=== PATIENT | female | born 1960 | race Caucasian/White ===

== ENCOUNTER 2024-01-27 10:41 | Outpatient (AMB) | payer OTHER, SELFPAY ==
--- NOTE | 2024-01-27 10:45 | A.OFFPC_ITS ---
Vital Signs 01/27/24 10:47 Height 5 ft 7 in Weight 171 lb 2 oz BMI 26.8 BP 124/66 Blood Pressure Location Rt brachial Position Sitting Pulse 66 Pulse Source Pulse Oximeter Pulse Oximetry (%) 97 Oxygen Delivery Method Room Air Intake Visit Reasons: BREND[facility] From [facility] Allergies No Known Allergies Allergy (Verified 01/27/24 10:49) Tobacco use date assessed: 01/27/24 Fall risk assessment: No Falls in past year Last assessed Fall Risk: 01/27/24 Dental Screening Dental Screen Date: 01/27/24 Did you have a dental visit in the last 12 months?: Yes Did you have a dental problem in the last 6 months where you did not have access to dental care?: No Was dental information given to patient?: Patient has dentist HPI HPI Comments 2 History of Present Illness Details The patient is a 63-year-old female with a past medical history of hyperlipidemia, osteopenia, osteoarthritis presenting for follow-up. She was last seen 09/04/2023 for annual exam OA: Follows with [facility] treatment [facility], Dr. Hernandez. She was having bilateral knee issues last year and low back pain. She did start treatments, mud [place]. This helped alleviate a lot of the pain. She is repeating this regimen in february Right TMJ has improved Chiro believes it is more muscular than joint. 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 Shirley office ROS CONSTITUTIONAL: Denies weight loss, fever and chills. HEENT: Denies changes in vision and hearing. RESPIRATORY: Denies SOB and cough. CV: Denies palpitations and CP GI: Denies abdominal pain, nausea, vomiting and diarrhea. : Denies dysuria and urinary frequency. MSK: Denies new myalgia and joint pain. SKIN: Denies rash and pruritus. NEUROLOGICAL: Denies headache PSYCHIATRIC: Denies recent changes in mood. PHYSICAL EXAM: GENERAL: Alert and oriented x 3. NAD EYES: EOMI. Anicteric. HENT: Moist mucous membranes. No scleral icterus. No cervical lymphadenopathy. LUNGS: Clear to auscultation bilaterally. CARDIOVASCULAR: Regular rate and rhythm. No murmur. No JVD. ABDOMEN: Soft, non-tender +bs EXTREMITIES: No edema. Non-tender. SKIN: No rashes or lesions. Warm. NEUROLOGIC: No focal neurological deficits. CN II-XII grossly intact PSYCHIATRIC: Cooperative. Appropriate mood and affect [facility] Surgical History No pertinent past surgical history Family History Father Cancer Alcohol abuse Substance abuse Social History Household Members: Spouse Housing: House Alcohol intake: never Patient Tobacco Use Status: Former Tobacco user Use of substances other than those prescribed or required for medical reasons: No Current occupational status: retired Cognitive needs: No Hearing needs: No Vision needs: Yes Questionnaire PHQ-9 Over the last 2 weeks, how often have you been bothered by any of the following problems? 1. Little interest or pleasure in doing things: not at all 2. Feeling down, depressed, or hopeless: not at all 3. Trouble falling or staying asleep, or sleeping too much: not at all 4. Feeling tired or having little energy: not at all 5. Poor appetite or overeating: not at all 6. Feeling bad about yourself - or that you are a failure or have let yourself or your family down: not at all 7. Trouble concentrating on things, such as reading the newspaper or watching television: not at all 8. Moving or speaking so slowly that other people could have noticed. Or the opposite - being so fidgety or restless that you have been moving around a lot more than usual: not at all 9. Thoughts that you would be better off or of hurting yourself in some way: not at all Total score: 0 Depression Screening Interpretation: Negative (neg) Depression Screening Done: Yes 36025 - PHQ-9 Billing: Yes Source: Developed by Drs. Bryan Valenzuela, Frances Huitron, Baltazar Monaco and colleagues, with an educational moshe from [employer] Thrive Questionnaire Date Thrive assessed: 01/27/24 I am a: Patient What is your living situation today?: I have a steady place to live Within the past 12 months, did the food you bought not last and you didn't have the money to get more?: Never true Within the past 12 months, did you worry whether your food would run out before you got money to buy more?: Never true Do you have trouble paying for medicines?: No Do you have trouble getting transportation to medical appointments?: No Do you have trouble paying your heating and electricity bill?: No Do you have trouble taking care of your child, family member or friend?: No Do you have trouble with day-to-day activities such as bathing, preparing meals, shopping, managing finances, etc.?: No Are you currently unemployed and looking for a job?: No Are you interested in more education?: No THRIVE Score: 0 AUDIT C Alcohol Use Questionnaire (AUDIT-C) 1. How often do you have a drink containing alcohol?: Never 3. How often do you have six or more drinks on one occasion?: Never Total Score: 0 JAS-7 AMB Questionnaire JAS-7 Date JAS - 7 assessed: 01/27/24 Feeling nervous, anxious, or on edge: 0 = Not at all Not being able to stop or control worryin = Not at all Worrying too much about different things: 0 = Not at all Trouble relaxin = Not at all Being so restless that it is hard to sit still: 0 = Not at all Becoming easily annoyed or irritable: 0 = Not at all Feeling afraid as if something awful might happen: 0 = Not at all Total JAS-7 score (0-4 normal; 5-9 mild; 10-14 moderate; 15-21 severe): 0 Source: Developed by Drs. Bryan Valenzuela, Frances Huitron, Baltazar Monaco and colleagues, with an educational moshe from [employer] JAS-7 Assessment Billing JAS-7 Assessment Tool: JAS-7 Assessment 80376 Physical exam (Primary Care) Vital Signs: Last Vital Signs Pulse 66 01/27/24 10:47 BP 124/66 01/27/24 10:47 Pulse Ox 97 01/27/24 10:47 Oxygen Delivery Method Room Air 01/27/24 10:47 BMI result Body Mass Index 26.8 Tobacco/Smoking Status: Tobacco use Status Tobacco use date assessed 01/27/24 01/27/24 10:57 Patient Tobacco Use Status Former Tobacco user 01/27/24 10:57 PHQ-9: PHQ-9 Score PHQ-9: Total score 0 01/29/24 10:50 Depression Screening Interpretation: Negative (neg) Thrive Assessment: Date of Thrive Assessment Date Thrive assessed 01/27/24 01/27/24 10:57 Assessment and Plan Assessment & Plan (1) Osteoarthritis: Code(s): M19.90 - Unspecified osteoarthritis, unspecified site (2) Knee pain: Code(s): M25.569 - Pain in unspecified knee Qualifiers: Chronicity: chronic Laterality: bilateral Qualified Code(s): M25.561 - Pain in right knee; M25.562 - Pain in left knee; G89.29 - Other chronic pain Plan: continue f/up with arthritis treatment center [place]coming [place] treatments [place] Labs ordered Orders: Orders Complete Blood Count Auto Diff 01/27/24 M19.90 - Unspecified osteoarthritis, unspecified site, M25.569 - Pain in unspecified knee, S03.00XA - Dislocation of jaw, unspecified side, initial encounter, Z13.0 - Encounter for screening for diseases of the blood and blood-forming organs and certain disorders involving the immune mechanism, Z13.228 - Encounter for screening for other metabolic disorders Vitamin D 1,25 dihydroxy 01/27/24 M19.90 - Unspecified osteoarthritis, unspecified site, M25.569 - Pain in unspecified knee, S03.00XA - Dislocation of jaw, unspecified side, initial encounter, Z13.0 - Encounter for screening for diseases of the blood and blood-forming organs and certain disorders involving the immune mechanism, Z13.228 - Encounter for screening for other metabolic disorders IRON PROFILE 01/27/24 M19.90 - Unspecified osteoarthritis, unspecified site, M25.569 - Pain in unspecified knee, S03.00XA - Dislocation of jaw, unspecified side, initial encounter, Z13.0 - Encounter for screening for diseases of the blood and blood-forming organs and certain disorders involving the immune mechanism, Z13.228 - Encounter for screening for other metabolic disorders Comprehensive Met. Panel 01/27/24 M19.90 - Unspecified osteoarthritis, unspecified site, M25.569 - Pain in unspecified knee, S03.00XA - Dislocation of jaw, unspecified side, initial encounter, Z13.0 - Encounter for screening for diseases of the blood and blood-forming organs and certain disorders involving the immune mechanism, Z13.228 - Encounter for screening for other metabolic disorders ABO RH Type 01/27/24 M19.90 - Unspecified osteoarthritis, unspecified site, M25.569 - Pain in unspecified knee, S03.00XA - Dislocation of jaw, unspecified side, initial encounter, Z13.0 - Encounter for screening for diseases of the blood and blood-forming organs and certain disorders involving the immune mechan ism, Z13.228 - Encounter for screening for other metabolic disorders AMB Urinalysis Auto Microscop. 01/27/24 M19.90 - Unspecified osteoarthritis, unspecified site, Z13.0 - Encounter for screening for diseases of the blood and blood-forming organs and certain disorders involving the immune mechanism, Z13.228 - Encounter for screening for other metabolic disorders Referrals MICROELECTRONICS TECHNICIAN Referral Z12.4 - Encounter for screening for malignant neoplasm of cervix Coding Level of Care Code Est Pt Level 4 (53470) Diagnoses Osteoarthritis M19.90 Chronic pain of both knees M25.561; M25.562; G89.29 Chronicity: chronic Laterality: bilateral Additional Codes JAS-7 Assessment Billing - JAS-7 Assessment Tool: JAS-7 Assessment 60668 ([id number]) Time Spent (min) 38
[2024-01-27 10:47] VITALS: BP 124/66; PULSE 66; O2SAT 97; BMI 26.8
== END 2024-01-27 11:27 | disposition home or self-care (01) ==
PROVIDERS: Visit Provider Internal Medicine
DX: M19.90 Unspecified osteoarthritis, unspecified site (principal); M25.561 Pain in right knee; M25.562 Pain in left knee; G89.29 Other chronic pain
CPT/HCPCS: 99214

== ENCOUNTER 2024-02-27 10:53 | Outpatient (REF) | payer OTHER, SELFPAY ==
[2024-02-27 14:20] LABS: MANUAL DIFF FLAG NO
[2024-02-27 14:29] LABS: Basophils Absolute Auto 0.1 X10*3/uL (0.0-0.2); Basophils Percent Auto 1.4 % (0-2); Eosinophils Absolute Auto 0.1 X10*3/uL (0.0-0.4); Hematocrit 40.1 % (37.0-47.0); Hemoglobin 13.2 g/dl (12.0-16.0); Imm Gran Abs Auto 0.01 X10*3/uL (0.00-0.03); Imm Gran Pct Auto 0.2 % (0.0-0.4); Lymphocytes Absolute Auto 2.4 X10*3/uL (1.2-4.9); Lymphocytes Percent Auto 42.1 % (20-40); Mean Corpuscular HGB Conc 32.9 g/dl (31.0-35.0); Mean Corpuscular Hemoglobin 28.4 pg (27.0-33.0); Mean Corpuscular Volume 86.2 fL (80.0-98.0); Mean Platelet Volume 10.2 fL (9.4-12.3); Monocytes Absolute Auto 0.5 X10*3/uL (0.1-1.2); Monocytes Percent Auto 8.6 % (2-11); Neutrophils Absolute Auto 2.7 x10*3/uL (2.0-8.3); Neutrophils Percent Auto 46.7 % (45-73); Platelet Count 254 X10*3/uL (160-400); Red Blood Count 4.65 X10*6/uL (4.20-5.50); Red Cell Distribution Width 13.2 % (11.0-16.0); White Blood Count 5.8 X10*3/uL (4.8-10.8)
[2024-02-27 14:52] LABS: Alanine Aminotransferase 24 U/L (0-31); Albumin Level 4.1 g/dL (3.5-5.0); Alkaline Phosphatase 49 U/L (39-117); Anion Gap 14 (12-20); Aspartate Amino Transferase 20 U/L (5-31); Bilirubin Total 0.6 mg/dL (0.0-1.0); Blood Urea Nitrogen 13 mg/dL (9-16); Calcium 9.3 mg/dL (8.4-10.2); Carbon Dioxide 23 mmol/L (22-29); Chloride 105 mmol/L (96-108); Estimated Glomerular Filt Rate > 60; Glucose Random 94 mg/dL (60-115); Iron 94 mcg/dL (30-160); Percent Iron Saturation 36 % (15-50); Potassium 3.8 mmol/L (3.3-5.1); Sodium 138 mmol/L (135-145); Total Iron Binding Capacity 263 mcg/dL (228-428); Total Protein 6.9 g/dL (6.5-8.0); Unsaturated Iron Binding 169 ug/dL
[2024-03-03 01:14] LABS: VITAMIN D (1,25 OH) D3 41 pg/mL; Vit D (1,25-Dihydroxy) Total 41 pg/mL (18-72); Vitamin D (1,25 OH) D2 <8 pg/mL
== END 2024-02-27 10:54 | disposition home or self-care (01) ==
LOC: HO.WFDLDS 10:53
PROVIDERS: Visit Provider Internal Medicine
DX: M19.90 Unspecified osteoarthritis, unspecified site (principal); M25.569 Pain in unspecified knee; S03.00XA Dislocation of jaw, unspecified side, initial encounter; Z13.0 Encounter for screening for diseases of the blood and blood-forming organs and certain disorders involving the immune mechanism; Z13.228 Encounter for screening for other metabolic disorders
CPT/HCPCS: 36415; 80053; 82652; 83540; 85025; 86900; 86901

== ENCOUNTER 2024-08-21 13:00 | Outpatient (AMB) | payer OTHER, SELFPAY ==
--- NOTE | 2024-08-21 13:06 | A.OFFPC_ITS ---
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: No Allergies No Known Allergies Allergy (Verified 08/21/24 13:08) Tobacco use date assessed: 08/21/24 Fall risk assessment: No Falls in past year Last assessed Fall Risk: 08/21/24 Dental Screening Dental Screen Date: 08/21/24 Did you have a dental visit in the last 12 months?: Yes Did you have a dental problem in the last 6 months where you did not have access to dental care?: No Was dental information given to patient?: Patient has dentist HPI HPI Comments History of Present Illness Details The patient is a 64-year-old female with a past medical history of hyperlipidemia, osteopenia, osteoarthritis presenting for physical exam OA: Follows with arthritis treatment Center, Dr. Hernandez. She was having bilateral knee issues last year and low back pain. She did start treatments, mud baths as [place] physician [place]. This helped alleviate a lot of the pain. Right TMJ has improved Chiro believes it is more muscular than joint. 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 Shirley office ROS CONSTITUTIONAL: Denies weight loss, fever and chills. HEENT: Denies changes in vision and hearing. RESPIRATORY: Denies SOB and cough. CV: Denies palpitations and CP GI: Denies abdominal pain, nausea, vomiting and diarrhea. : Denies dysuria and urinary frequency. MSK: Denies new myalgia and joint pain. SKIN: Denies rash and pruritus. NEUROLOGICAL: Denies headache PSYCHIATRIC: Denies recent changes in mood. PHYSICAL EXAM: GENERAL: Alert and oriented x 3. NAD EYES: EOMI. Anicteric. HENT: Moist mucous membranes. No scleral icterus. No cervical lymphadenopathy. LUNGS: Clear to auscultation bilaterally. CARDIOVASCULAR: Regular rate and rhythm. No murmur. No JVD. ABDOMEN: Soft, non-tender +bs EXTREMITIES: No edema. Non-tender. SKIN: No rashes or lesions. Warm. NEUROLOGIC: No focal neurological deficits. CN II-XII grossly intact PSYCHIATRIC: Cooperative. Appropriate mood and affect [facility] Surgical History No pertinent past surgical history Family History Father Cancer Alcohol abuse Substance abuse Social History (Updated 08/21/24 @ 13:15 by Airam Rodriguez CMA) Household Members: Spouse Housing: House Alcohol intake: never Patient Tobacco Use Status: Former Tobacco user e-Cigarette/Vaping Use: Never Used Second Hand Smoke Exposure: No Current occupational status: retired Cognitive needs: No Hearing needs: No Vision needs: Yes Questionnaire Thrive Questionnaire Date Thrive assessed: 01/27/24 JAS-7 AMB Questionnaire JAS-7 Date JAS - 7 assessed: 01/27/24 Source: Developed by Drs. Bryan Valenzuela, Frances Huitron, Baltazar Monaco and colleagues, with an educational moshe from [employer]. Physical exam (Primary Care) Vital Signs: Last Vital Signs Pulse 78 08/21/24 13:13 Resp 14 08/21/24 13:13 BP 108/78 08/21/24 13:13 Pulse Ox 99 08/21/24 13:13 Oxygen Delivery Method Room Air 08/21/24 13:13 BMI result Body Mass Index 28.1 Tobacco/Smoking Status: Tobacco use Status Tobacco use date assessed 08/21/24 08/21/24 13:12 Patient Tobacco Use Status Former Tobacco user 08/21/24 13:15 e-Cigarette/Vaping Use Never Used 08/21/24 13:15 Thrive Assessment: Date of Thrive Assessment Date Thrive assessed 01/27/24 08/21/24 13:08 Coding Level of Care Code Est Pt Prev Care >65y(92994) Diagnoses Physical exam Z00.00 Assessment & Plan Assessment & Plan (1) Physical exam: Code(s): Z00.00 - Encounter for general adult medical examination without abnormal findings Category: Medical Plan: 64 y/o for cpe. Chronic medical conditions reviewed. Interval medical history reviewed. Medications reconciled. Orders: Orders Comprehensive Met. Panel 08/21/24 G89.29 - Other chronic pain, M19.90 - Unspecified osteoarthritis, unspecified site, M25.561 - Pain in right knee, M25.562 - Pain in left knee, Z13.0 - Encounter for screening for diseases of the blood and blood-forming organs and certain disorders involving the immune mechanism, Z13.220 - Encounter for screening for lipoid disorders, Z13.228 - Encounter for screening for other metabolic disorders Lipid Panel 08/21/24 G89.29 - Other chronic pain, M19.90 - Unspecified osteoarthritis, unspecified site, M25.561 - Pain in right knee, M25.562 - Pain in left knee, Z13.0 - Encounter for screening for diseases of the blood and blood-forming organs and certain disorders involving the immune mechanism, Z13.220 - Encounter for screening for lipoid disorders, Z13.228 - Encounter for screening for other metabolic disorders Complete Blood Count Auto Diff 08/21/24 Z13.0 - Encounter for screening for diseases of the blood and blood-forming organs and certain disorders involving the immune mechanism, Z13.220 - Encounter for screening for lipoid disorders, Z13.228 - Encounter for screening for other metabolic disorders Vitamin D 25-OH (D2 and D3) 08/21/24 R79.89 - Other specified abnormal findings of blood chemistry Referrals Gastroenterology Referral Z12.11 - Encounter for screening for malignant neoplasm of colon Rheumatology Referral G89.29 - Other chronic pain, M19.90 - Unspecified osteoarthritis, unspecified site, M25.561 - Pain in right knee, M25.562 - Pain in left knee, Z13.0 - Encounter for screening for diseases of the blood and blood-forming organs and certain disorders involving the immune mechanism, Z13.220 - Encounter for screening for lipoid disorders, Z13.228 - Encounter for screening for other metabolic disorders
[2024-08-21 13:13] VITALS: BP 108/78; PULSE 78; RESP 14; O2SAT 99; BMI 28.1
== END 2024-08-21 13:56 | disposition home or self-care (01) ==
PROVIDERS: PCP Internal Medicine; Visit Provider Internal Medicine
DX: Z00.00 Encounter for general adult medical examination without abnormal findings (principal)

== ENCOUNTER 2025-04-16 08:23 | Outpatient (REF) | payer OTHER, SELFPAY ==
--- NOTE | ~2025-04-16 | XR_ITS ---
EXAMINATION: XR CHEST CLINICAL INFORMATION: R05.9 - Cough, unspecified COMPARISON: None available. TECHNIQUE: PA and lateral views. FINDINGS: Hyperinflated lungs. Pulmonary reticular pattern. No consolidation, pleural effusion or pneumothorax. Cardiomediastinal silhouette size is normal. Multilevel spondylosis. Osteopenia versus osteoporosis. XR/XR chest 2V IMPRESSION: Hyperinflated lungs suggesting COPD emphysematous type changes without acute airspace disease. Electronically signed by: Kobi Tolentino MD 04/16/2025 09:35 AM EDT
== END 2025-04-16 08:24 | disposition home or self-care (01) ==
LOC: HO.HMGCX 08:23
PROVIDERS: PCP Internal Medicine; Visit Provider Physician Assistant
DX: R05.1 Acute cough (principal)
CPT/HCPCS: 71046; 99212

== ENCOUNTER 2025-04-16 08:23 | Outpatient (AMB) | payer OTHER, SELFPAY ==
[2025-04-16 08:53] VITALS: BP 128/64; PULSE 82; RESP 16; TEMP 36.9; O2SAT 93; BMI 27.1
--- NOTE | 2025-04-16 08:53 | AM.OFFWIN_ITS ---
Intake Vital Signs 04/16/25 08:53 Height 5 ft 7 in Weight 173 lb BMI 27.1 BP 128/64 Blood Pressure Location Rt brachial Position Sitting Respiration 16 Pulse 82 Pulse Source Pulse Oximeter Temp 98.5 F Temp Source Oral Pulse Oximetry (%) 93 Oxygen Delivery Method Room Air Intake Visit Reasons: EP Cough Intake Note: Pt is here today c/o cough x1week Patient Tobacco Use Status: Former Tobacco user Allergies No Known Allergies Allergy (Verified 08/21/24 13:08) HPI HPI Comments History of Present Illness Details This is a 64-year-old female with no stated past medical history presenting for evaluation of cough that she has had for the past 1 week. Patient states she returned from [place] last weekend and was diagnosed with a urinary tract infection that day for which she was prescribed Keflex that she took twice daily for 5 days. Patient states her urinary symptoms has resolved however she continues to have a cough that is significantly worse at night. She denies having any fevers, chills, chest pain, shortness for breath or wen/swelling in her extremities. [facility] Surgical History No pertinent past surgical history Family History Father Cancer Alcohol abuse Substance abuse Social History (Updated 08/21/24 @ 13:15 by Airam Rodriguez CMA) Household Members: Spouse Housing: House Alcohol intake: never Patient Tobacco Use Status: Former Tobacco user e-Cigarette/Vaping Use: Never Used Second Hand Smoke Exposure: No Current occupational status: retired Cognitive needs: No Hearing needs: No Vision needs: Yes Review of Systems Const All systems reviewed & are unremarkable except as noted in HPI and below Denies body aches, Denies chills, Denies fatigue and Denies fever(s) Eyes Reports no additional complaints ENT Reports no additional complaints Card Reports no additional complaints, Denies dyspnea and Denies dyspnea on exertion Resp Reports cough, Denies dyspnea, Denies dyspnea on exertion and Denies wheezing GI Reports no additional complaints Reports no additional complaints Musc Reports no additional complaints Skin/Breast Reports system reviewed and no additional complaints, except as documented Neuro Reports no additional complaints Psych Reports no additional complaints Endo Reports no additional complaints and Denies fatigue Dontrell/Lymph Reports no additional complaints Aller/Immun Reports no additional complaints and Denies wheezing Physical Exam Vital Signs: Last Vital Signs Temp 98.5 F 04/16/25 08:53 Pulse 82 04/16/25 08:53 Resp 16 04/16/25 08:53 BP 128/64 04/16/25 08:53 Pulse Ox 93 04/16/25 08:53 Oxygen Delivery Method Room Air 04/16/25 08:53 BMI result Body Mass Index 27.1 Patient is afebrile. Const General: cooperative, healthy appearing, comfortable, no acute distress and well developed; No ill appearing Nutritional Appearance: average body habitus Orientation/consciousness: patient oriented x3 Limitations: no limitations HEENT Head: Yes normal to inspection and Yes normocephalic Ears: hearing grossly normal bilaterally, external ears normal, TM's normal bilaterally and EAC's normal General nose exam: Normal external nose present Face and sinus: Yes normal facial exam and Yes sinuses nontender Mouth: Normal oral and palatal mucosa present, tongue normal, oropharynx normal and moist mucous membranes Throat: Yes posterior oropharynx normal Eyes General: appearance normal, both eyes and all related structures Neck Lymphatic: no lymphadenopathy noted Resp Effort & Inspection: normal respiratory effort, Actively coughing, respiratory effort not decreased, no nasal flaring and not tachypneic Auscultation: clear to auscultation bilaterally, no crackles, no rales, no rhonchi and no wheezes Cardio Rate: regular rate Rhythm: regular rhythm Skin General skin exam: no rashes or lesions noted Neuro General: patient oriented x3 Psych Appearance: grossly normal Mental Status: mental status grossly normal Insight: Good insight present (Psych) Judgement: Good judgement present (Psych) Results Reviewed Results Reviewed: No acute findings noted on chest x-ray. Assessment & Plan Assessment & Plan (1) Cough: Code(s): R05.9 - Cough, unspecified Qualifiers: Cough type: acute Qualified Code(s): R05.1 - Acute cough Plan: Patient is evaluated. She is well-appearing and in no acute distress however her oxygen level is lower than expected given her physical examination. Chest x-ray does not reveal any acute findings. Patient is declining testing for COVID-19, influenza and RSV despite her recent travel. Plan Mucinex OTC with increased clear fluids daily, tea with honey for cough and follow up only as needed for any worsening symptoms. Orders: Orders XR chest 2V Today R05.9 - Cough, unspecified Coding Level of Care Code Est Pt Level 3 (29601) Diagnoses Acute cough R05.1 Cough type: acute Time Spent (min) 25
== END 2025-04-16 09:47 | disposition home or self-care (01) ==
PROVIDERS: PCP Internal Medicine; Visit Provider Physician Assistant
DX: R05.1 Acute cough (principal)

== ENCOUNTER → 2025-04-16 09:19 | Outpatient (BNV) | payer OTHER, SELFPAY | PROVIDERS: PCP Internal Medicine; Visit Provider Radiology Diagnostic Radiology | DX: R05.9 Cough, unspecified (principal) | CPT/HCPCS: 71046 ==